=== PATIENT | female | born 2000 | race Caucasian/White ===

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

== ENCOUNTER 2018-11-30 20:04 | Emergency (ER) | payer MEDICAID, OTHER ==
[2018-07-17 15:22] VITALS: BMI 29.1
--- NOTE | 2018-11-30 22:17 | OBDCSUM ---
Datetime: 11/30/2018 21:25 Follow up at, Provider: Dr. MASON Disch Instr Activity: Normal activity Disch Instr Diet: Regular Discharge Time: 11/30/2018 21:37 Follow up in weeks, Provider: VASQUEZ HUDSON Disch Referrals: None Discharge Diagnosis Prov Other: encounter for
--- NOTE | 2018-11-30 22:18 | OBHP ---
Datetime: 11/30/2018 20:18 IP Adm Impression: , intrauterine IP Admit Plan: Observation/Evaluation; Discharge home Admit Comment, IP Provider: 18 y/o female at 35.5 wk GA presents to [facility] w/ c/o of "leaking" per vagina, which began at 3:45am today. She denies gush of fluid, vaginal bleeding, abdominal cramp ing. She denies urinary symptoms. She was last sexually active yesterday. She endorses movement . OB: Dr. Munoz Pmhx: denies Famhx mom w/ DM; paternal grandfather HTN SurgHx: denies HomeRx: vitamins Social hx: denies toxic habits ROS negative except per HPI Physical exam: Gen: sitting comfortably in bed, no actue distress heart: s1 s2 present, normal rrr lungs: clear to auscultation bilaterally abd: gravid, nontender, soft Extremities: no edema, erythema, or tenderness SVE (By Dr. Ivy): 1 cm cervical dilatation Assessment and Plan: 18 y/o female at 35.5 wk GA presents to [facility] w/ c/o of "leaking" per vagina SVE: 1 cm dilated Speculum exam showed no pooling; Nitrazine negative NST reactive, no contractions on toco Patient is stable for discharge to home w/ ER precautions given. Will follow up w/ OB on Friday . Discussed case w/ attending, Dr. Cata [facility] pgyi Addendum by Dr. Ivy: I have evaluated the patient independently and I agree with the above Pelvic Type - PN: Not Done Extremities - PN: Normal Abdomen - PN: Normal Back - PN: Not Done Breast - PN: Not Done Lungs - PN: Normal Heart - PN: Normal Thyroid - PN: Not Done Neurologic - PN: Not Done HEENT - PN: Not Done General - PN: Normal FHR - Baseline A Provider: 135 Gestation - Est Wks by US: 35.5 Pool Provider: Negative Nitrazine Provider: Negative Vital Signs Provider: Reviewed; Within Normal Limits IP Chief Complaint: Suspected ruptured membranes NICHD Variability Prov Fetus A: Moderate 6-25bpm NICHD Accel Fetus A IP Provider: 10X10 NICHD Decel Fetus A IP Provider: None Dilatation, Provider: 1 Genitourinary Exam: Normal DTRs - PN: Not Done
[2018-12-01 01:45] VITALS: BP 110/63; PULSE 100
== END 2018-11-30 21:44 | disposition home or self-care (01) ==
LOC: H.EROB2 20:04
DX: O34.63 Maternal care for abnormality of vagina, third trimester (principal); N89.8 Other specified noninflammatory disorders of vagina; Z3A.38 38 weeks gestation of pregnancy

== ENCOUNTER 2018-12-28 14:28 | Emergency (ER) | payer OTHER ==
--- NOTE | 2018-12-28 16:06 | OBHP ---
Datetime: 12/28/2018 15:46 IP Adm Impression: Term, intrauterine IP Admit Plan: Observation/Evaluation; Discharge home Admit Comment, IP Provider: 18 yo at 39+5 wks w/ EDC 12/30/2018 by 14+ wks, c/o pelvic pain since Sat night, has to walk slowly, needs assistance changing position, reports that she has pain i n groins and waist, reports irreg ctxns. Pt reports not feeling the baby move since last night. Pt denies VB, LOF. All other systems reviewed and neg. Pt reports that she would like to be delivered today. Pt reports that baby has been estimated to be above 9 lbs. Pt receives her care w/ D david Gonzalez. PMH: Pam PSH: None Meds: None All: NKDA OB hx: 10/2017 female, 7#0 It Trainee: menarche at 8 yo, irregular periods until after delivery of her child Fam hx: M -DM, mat uncle heart dz, mat great uncle from lung cancer, MGF from esophageal cancer, mat aunt from ovarian cancer, PGM HTN, PGM DM Soc hx: Pt denies tobacco, alcohol and illicit drug use PE: AFVSS Gen'l: Pt appears in NAD lying in stretcher Heart: RRR Chest: Lungs CTA b/l Abd:l soft, NT, gravid, baby appears to be large Ext: NT VE: about 3 cm, 50%/extremely posterior EFM: as above [place]: as above A/P: 18 yo at 39+5 wks w/ maternal discomfort. Rec that she try tylenol for pain. NST re active. Pt discharged home. Case was discussed w/ Dr. Gonzalez. Pt has an appoint w/ Dr. Cristina casillas tomorrow. Extremities - PN: Normal Abdomen - PN: Normal Back - PN: Normal Lungs - PN: Normal Heart - PN: Normal General - PN: Normal FHR - Baseline A Provider: 140's Membranes, Provider: Intact Contraction Comments Provider: irregular EGA AdmitDate IP: 39.5 Vital Signs Provider: Reviewed IP Chief Complaint: Maternal discomfort NICHD Variability Prov Fetus A: Moderate 6-25bpm NICHD Accel Fetus A IP Provider: 15X15 FHR Category Provider Fetus A: Category I NICHD Decel Fetus A IP Provider: None Dilatation, Provider: 3 Effacement, Provider: 50 Station, Provider: -2 Genitourinary Exam: Normal
[2018-12-28 16:29] VITALS: BMI 37.5
[2018-12-28 20:33] VITALS: BP 115/63; PULSE 110; RESP 18; TEMP 97.8
== END 2018-12-28 15:48 | disposition home or self-care (01) ==
LOC: H.EROB2 14:28
DX: O26.93 Pregnancy related conditions, unspecified, third trimester (principal); R10.2 Pelvic and perineal pain; Z3A.39 39 weeks gestation of pregnancy

== ENCOUNTER 2018-12-30 04:53 | Inpatient (IN) | payer OTHER ==
[2018-12-30 05:24] VITALS: BMI 37.4
[2018-12-30] MEDS ORDERED: Oxytocin 30 UNIT 30 UNITS/500 ML BAG IV ONE (05:31)
[2018-12-30] MEDS ORDERED: OXYTOCIN/0.9 % NS 20 UNIT/1,000 ML BAG IV SCH (05:45)
[2018-12-30] MEDS: Lactated Ringer's 1,000 ML IV ONE ×3 (06:00→07:30)
[2018-12-30 06:08] VITALS: RESP 20
[2018-12-30] MEDS ORDERED: cefOXitin Sodium 1 GM in Sodium Chloride 0.9% 100 ML IVPB ONE (07:01)
[2018-12-30 07:08] LABS: BASO # 0.1 K/uL (0.0-0.2); BASO % 0.5 % (0.0-2.0); EOS # 0.2 K/uL (0.0-0.7); EOS % 1.3 % (0.0-4.0); LYMPH # 3.9 K/uL (1.0-4.3); LYMPH % 30.6 % (20.0-40.0); MEAN CELL VOLUME 76.5 fl (81.0-99.0); MEAN CORPUSCULAR HEMOGLOBIN 24.5 pg (27.0-31.0); MEAN PLATELET VOLUME 9.2 fl (7.2-11.7); MONO % 7.9 % (0.0-10.0); NEUT # 7.7 K/uL (1.8-7.0); NEUT % 59.7 % (50.0-75.0); RBC 4.48 Mil/uL (3.80-5.20); RED CELL DISTRIBUTION WIDTH 15.5 % (11.5-14.5); WHITE BLOOD COUNT 12.8 K/uL (4.8-10.8)
[2018-12-30] MEDS ORDERED: ePHEDrine 50 mg/ml Inj ONE (07:37)
[2018-12-30] MEDS ORDERED: Morphine 1 mg/ml preservative-free Inj(Duramorph) ONE (07:38)
[2018-12-30] MEDS ORDERED: EPINEPHrine 1 mg/ml (1:1000) Inj ONE (07:45)
[2018-12-30] MEDS ORDERED: Oxycodone/Acetaminophen 5/325 mg Tab PO PRN ×4 (09:12→13:46)
[2018-12-30] MEDS ORDERED: OXYTOCIN/0.9 % NS 20 UNIT/1,000 ML BAG IV ONE ×2 (09:12→13:46)
--- NOTE | 2018-12-30 09:28 | OBADHP ---
Datetime: 12/30/2018 09:21 Admit Comment, IP Provider: iup at term uneventful course admitted because of macrosomia fo r delivery by primary section Pelvic Type - PN: Adequate Extremities - PN: Normal Abdomen - PN: Normal Back - PN: Normal Breast - PN: Normal Lungs - PN: Normal Heart - PN: Normal Thyroid - PN: Normal Neurologic - PN: Normal HEENT - PN: Normal General - PN: Normal Weight - Estimated: 9 Presentation-Admit: Vertex Gestation - Est Wks by US: 40.0 Vital Signs Provider: Reviewed; Within Normal Limits FHR Category Provider Fetus A: Category I NICHD Decel Fetus A IP Provider: None Genitourinary Exam: Normal DTRs - PN: Normal IP Adm Impression: Term, intrauterine IP Admit Plan: Admit to unit; Initiate Section protocol Datetime: 12/28/2018 15:46 FHR - Baseline A Provider: 140's Membranes, Provider: Intact Contraction Comments Provider: irregular IP Chief Complaint: Maternal discomfort NICHD Variability Prov Fetus A: Moderate 6-25bpm NICHD Accel Fetus A IP Provider: 15X15 Dilatation, Provider: 3 Effacement, Provider: 50 Station, Provider: -2 EGA AdmitDate IP: 39.5 Datetime: 11/30/2018 20:18 Pool Provider: Negative Nitrazine Provider: Negative
--- NOTE | 2018-12-30 09:31 | OBDS ---
DELIVERY PERSONNEL Nurse Environmental Projects Advisor Certified: na Delivery Doctor: Abdi Gonzalez MD Scrub Nurse: Laura Jones OBT Director Chemistry: Ro Basurto RN/Enrique Serrato Anesthesiologist: Milieu Coordinator: nikolai Resident: nikolai MATERNAL INFORMATION Delivery Anesthesia: Spinal Medications in Delivery: Pitocin 20 units in 1000 cc Estimated Blood Loss (ml): 800 Placenta Cultured: No Maternal Complications: Other Other Maternal Complications: Macrosomia RN Comments: Primary C section performed by and tolerated well by pt.No acut e distress noted. Provider Comments: delivery of live baby boy 9/9 clear fluid cord with 3vessels tubes and ovar ies wnl LABOR SUMMARY EDC: 12/30/2018 00:00 No. Babies in Womb: 1 Attempted: No Labor Anesthesia: None LABOR INFORMATION Reason for Induction: Not Applicable Oxytocin: N/A Group B Beta Strep: Negative Antibiotics # of Doses: 1-pre op Antibiotics Time of Last Dose: 729 Steroids Given: None Reason Steroids Not Administered: Not Applicable MEMBRANES Membranes Rupture Method: Artificial Rupture of Membranes: 12/30/2018 08:17 Length of Rupture (hrs): 0.02 Amniotic Fluid Color: Clear Amniotic Fluid Amount: Large Amniotic Fluid Odor: Normal STAGES OF LABOR Stage 3 hrs: 0 Stage 3 min: 1 CSECTION DELIVERY CSection Incision: Lower Uterine Transverse BABY A INFORMATION Delivery Date/Time: 12/30/2018 08:18 Method of Delivery: Born in Route : No : N/A Forceps: N/A Vacuum Extraction: N/A Shoulder Dystocia : No SHOULDER DYSTOCIA BABY A Delivery Date/Time: 12/30/2018 08:18 PRESENTATION/POSITION BABY A Presentation: Cephalic Cephalic Presentation: Vertex Breech Presentation: N/A PLACENTA INFORMATION BABY A Placenta Delivery Time : 12/30/2018 08:19 Placenta Method of Delivery: Manual Removal Placenta Status: Delivered SCORES BABY A Heart Rate 1 min: >100 bpm Resp Effort 1 min: Good Cry Reflex Irritability 1 min: Cough or Sneeze or Pulls Away Muscle Tone 1 min: Active Motion Color 1 min: Body [place], Extremities Blue Resuscitation Effort 1 min: Tactile Stimulation SCORE 1 MIN: 9 Heart Rate 5 min: >100 bpm Resp Effort 5 min: Good Cry Reflex Irritability 5 min: Cough or Sneeze or Pulls Away Muscle Tone 5 min: Active Motion Color 5 min: Body [place], Extremities Blue Resuscitation Effort 5 min: Tactile Stimulation SCORE 5 MIN: 9 INFORMATION BABY A Gestational Age at Delivery: 40.0 Gestational Status: Term Infant Outcome : Liveborn Condition : Stable Infant Sex: Male IDENTIFICATION/MEDS BABY A ID Band Number: [id number] ID Band Location: Left Leg; Left Arm Vitamin K Given : Not Given Erythromycin Given: Not Given WEIGHT/LENGTH BABY A Birthweight (gms): 4330 Infant Weight (lb): 9 Infant Weight (oz): 9 Infant Length Inches: 22.00 Length cms: 55.9 CORD INFORMATION BABY A No. Cord Vessels: 3 Nuchal Cord : N/A Nuchal Cord Other: na True Knot: na Cord pH Baby Arterial: na Cord pH Baby Venous: na Cord Blood Taken: Yes Banking/Donate Info: na Suction: Mouth ASSESSMENT BABY A Complications: None Physical Findings at Delivery: Within Normal Limits Physical Findings Other: had Bm(mec),urine Respirations: Appears Normal Director Appointment/ALS Called : No Infant Care By: /Enrique George Transferred To: Remains with Mother
[2018-12-30] MEDS ORDERED: DiphenhydrAMINE 50 mg/ml Inj IVP PRN ×2 (09:41→13:46)
--- NOTE | 2018-12-30 20:53 | OP ---
PROCEDURE DATE: 12/30/2018 PREOPERATIVE DIAGNOSIS: Term , macrosomia. POSTOPERATIVE DIAGNOSIS: Term , macrosomia. PROCEDURE: Primary low transverse section. FINDINGS: Term size uterus. Live baby boy. Apgars 9 and 9. Clear fluid. Cord with three vessels. Placenta anterior. Tubes and ovaries within normal limits. ESTIMATED BLOOD LOSS: 800 mL. SURGEON: Vinny Gonzalez MD. MILL TENDER WASHING: Kehinde Nielson MD. ANESTHESIOLOGIST: Mago Andrea MD. ANESTHESIA: Spinal anesthesia. DESCRIPTION OF PROCEDURE: Dr. Nielson and I prepared the patient for surgery. After this was done, the Pfannenstiel incision was made and taken down to the fascial layers. Fascia was incised and extended bilaterally. Dr. Nielson doing his half and I am doing half. After this was done, the fascia was by sharp dissection and peritoneum was grasped, incised, and extended vertically. Upon entering the abdominopelvic cavity, the pericolic gutters were packed with wet laps, pushing the bowel away from the operative field. Bladder flap was then established. Dr. Nielson was assisting each step of the way. After this was done, a low transverse incision was made in the uterus extended bilaterally, curving upward. Baby was removed without any complications and given to the web press operator assistant who resuscitated. After this was done, the placenta was removed intact. Uterus was exteriorized, cleaned and closed in 2 layers using 1 Vicryl and 1 interlocking stitch. Bladder flap was then closed. After this was done, the pelvic cavity was irrigated until clean and the uterus was repositioned. Following this, the peritoneum was closed with 1 Vicryl. Muscles were approximated with 1 Vicryl. The fascia was then closed with 1 Vicryl running interlocking stitch starting at each end and finishing in the midline. Dr. Nielson assisting and doing his half and I was dong my half. The subcutaneous tissue was closed with 2-0 plain and the skin was closed in a subcuticular fashion with 3-0 Vicryl. The patient tolerated the procedure well and was in satisfactory condition on the way to the recovery room. Dr. Nielson was present from the beginning to the end of the surgery. Vinny MD [facility] # [id number]
[2018-12-31 06:23] LABS: HEMOGLOBIN 7.5 g/dL (12.0-16.0); MEAN CORPUSCULAR HEMOGLOBIN 23.8 pg (27.0-31.0); MEAN CORPUSCULAR HGB CONC 30.9 g/dL (33.0-37.0); RBC 3.15 Mil/uL (3.80-5.20); RED CELL DISTRIBUTION WIDTH 15.8 % (11.5-14.5)
[2018-12-31] MEDS: Multivitamin With Minerals Tab PO SCH (08:56)
[2018-12-31] MEDS ORDERED: Multivitamin With Minerals Tab PO SCH (09:00)
[2018-12-31 20:59] LABS: HEMOGLOBIN 7.7 g/dL (12.0-16.0); MEAN CELL VOLUME 77.2 fl (81.0-99.0); MEAN CORPUSCULAR HEMOGLOBIN 24.2 pg (27.0-31.0); MEAN CORPUSCULAR HGB CONC 31.4 g/dL (33.0-37.0); RBC 3.2 Mil/uL (3.80-5.20); RED CELL DISTRIBUTION WIDTH 15.7 % (11.5-14.5); WHITE BLOOD COUNT 13.3 K/uL (4.8-10.8)
[2019-01-01] MEDS: Multivitamin With Minerals Tab PO SCH (09:00)
--- NOTE | 2019-01-01 12:47 | OBPPN ---
Datetime: 01/01/2019 12:44 PP Pain Prov: Within normal limits PP Nausea Prov: Denies PP Flatus Prov: Yes PP BM Prov: No PP Breasts Prov: Normal PP Heart Prov: Normal PP Lungs Prov: Normal PP Abdomen/Uterus Prov: Normal PP Lochia Prov: Normal PP Vulva/Perineum Prov: Normal PP CVA Tenderness Prov: Normal PP Extremities Prov: Normal PP C/S Incision Prov: Normal PP Progress Prov: Normal PP Impression Prov: Normal progression PP Plan Prov: Continue present management PP Progress Note Prov: stable pod2 no complaints IP PP Procedures: None Vital Signs Provider PP: Reviewed; Within Normal Limits
[2019-01-01 22:12] VITALS: BP 127/71; PULSE 104; TEMP 98.2; O2SAT 99
== END 2019-01-01 17:50 | disposition home or self-care (01) | DRG 371 ==
LOC: H.L&D 04:53 → H.OB/GYN 12:15
PROVIDERS: ADMIT Specialist; ATTEND Specialist
PROC: 10D00Z1 Extraction of Products of Conception, Low, Open Approach (ICD-10-PCS; principal; 2018-12-30)
PROC: 4A1HXCZ Monitoring of Products of Conception, Cardiac Rate, External Approach (ICD-10-PCS; 2018-12-30)
DX: O36.63X0 Maternal care for excessive fetal growth, third trimester, not applicable or unspecified (principal); Z3A.40 40 weeks gestation of pregnancy; Z37.0 Single live birth